=== PATIENT | female | born 1985 | race African-American/Black ===

== ENCOUNTER 2020-05-25 19:20 | Emergency (ER) | payer OTHER ==
[~2020-05-25] VITALS: Ht 162.6 cm; Wt 68.0 kg
[~2020-05-25 19:20] MED LIST: COLACE 100 MG100 MG PO; COLACE100 MG PO; FEOSOL325 M1 PO; IBUPROFEN 600600 M1 PO; IBUPROFEN 800800 M1 PO; IRON325 PO; MACROBID 100 M100 M1 PO; NOHOMEMEDICATIONS; NORCO 5-325 TA1 EACH PO; PREDNISONE 10 M10 MG PO; TARON-C DHA CA1 EACH; ZOFRAN4 MG PO
[2020-05-25] MEDS ORDERED: ERYTHROMYCIN E3.5 G3 OPHTHALMIC (20:20)
[2020-05-25 20:25] VITALS: BP 112/72
== END 2020-05-25 20:25 | disposition home or self-care (01) ==
LOC: ER 19:20
DX: S05.01XA Injury of conjunctiva and corneal abrasion without foreign body, right eye, initial encounter (principal); W22.8XXA Striking against or struck by other objects, initial encounter; Y93.89 Activity, other specified; Y92.89 Other specified places as the place of occurrence of the external cause; Y99.8 Other external cause status